=== PATIENT | male | born 1965 | race Caucasian/White ===

== ENCOUNTER 2023-08-25 11:46 | Emergency (ER) | payer OTHER, SELFPAY ==
--- NOTE | ~2023-08-25 | XR_ITS ---
XR shoulder RT min 2V DATE: 08/25/2023 12:21 INDICATION: Pulling injury. [place] a pop and pain at the anterior shoulder. TECHNIQUE: 4 views COMPARISON: None FINDINGS: There is diminished subacromial space and superior migration of the humeral head suggesting rotator cuff atrophy or tear. No fracture or dislocation, periosteal reaction or bone destruction or abnormal soft tissue calcifica tion is detected. There are some chronic bony bridging across the second and third ribs anterolaterally. IMPRESSION: Suspected right rotator cuff atrophy or tear Reviewed, dictated and finalized at location [facility].
[2023-08-25 11:57] VITALS: BP 170/110; PULSE 88; RESP 16; TEMP 37.2; O2SAT 100
[2023-08-25 12:05] VITALS: BP 178/107
--- NOTE | 2023-08-25 12:14 | ED.GENADULT ---
HPI - General Adult General Chief complaint: Extremity Injury, Upper Stated complaint: rt shoulder pain Source: patient, RN notes reviewed and old records reviewed Mode of arrival: ambulatory Limitations: no limitations History of Present Illness HPI narrative: 58-year-old male patient presents to [facility] with complaints right shoulder pain that started after patient states was playing compressor string and it snapped back pulling his shoulder/arm.patient has pain with moving. Related Data Home Medications Medication Instructions Recorded Confirmed meloxicam 7.5 mg tablet mg 08/25/23 Allergies Allergy/AdvReac Type Severity Reaction Status Date / Time No Known Allergies Allergy Verified 08/25/23 12:01 Review of Systems Constitutional: Constitutional: Reports no additional constitutional complaints, Denies body ache(s), Denies chills, Denies fatigue, Denies fever(s) and Denies headache(s) Eyes: Eyes: Reports no additional eye complaints and Denies blurry vision ENT: Reports system reviewed and no additional complaints, except as documented, Denies vertigo, Denies dizziness, Denies ear discharge, Denies otalgia, Denies facial pain, Denies headache(s), Denies nasal congestion, Denies nasal discharge, Denies sinus pain, Denies sinus pressure and Denies sore throat Cardiovascular: Cardiovascular: Reports no additional cardiovascular complaints, Denies chest pain, Denies chest pain at rest, Denies rapid heart rate and Denies dyspnea Respiratory: Respiratory: Reports no additional respiratory complaints, Denies chest congestion, Denies cough, Denies pain on inspiration, Denies pain with cough and Denies dyspnea Gastrointestinal: Gastrointestinal: Denies abdominal pain, Denies diarrhea, Denies nausea and Denies vomiting Musculoskeletal: Musculoskeletal: Reports as per HPI Comments: Right shoulder pain Integumentary/Breasts: Skin/Breast: Denies rash Neurologic: Reports system reviewed and no additional complaints, except as documented, Denies vertigo, Denies dizziness and Denies headache(s) Endocrine: Endocrine: Denies fatigue PMFSH Comments At the time of my signature, I reviewed and agree with the nursing past medical, surgical, social, and family history. There is no relevant family history pertinent to the patient complaint. Exam Const: General: cooperative, healthy appearing, no acute distress and well nourished Nutritional Appearance: well nourished Orientation/consciousness: patient oriented x3 Limitations: no limitations HENMT: Head: normal to inspection and normocephalic Ears: external ears normal, TM's normal bilaterally, EAC's normal and mastoids normal Face/Nose/Sinus: normal facial exam Face and sinus: normal facial exam Mouth: Yes Normal oral and palatal mucosa present, Yes oropharynx normal and Yes moist mucous membranes Throat: tonsils normal, uvula midline and no uvular edema Eyes: General: appearance normal, both eyes and all related structures Sclera: sclerae normal Pupils: Equal, round and reactive pupils present Resp: Effort & Inspection: normal respiratory effort, able to speak in complete sentences, no audible wheezes, no cough, no respiratory distress and no retractions Skin: General skin exam: normal color and no rashes or lesions noted Neuro: General: patient oriented x3 Cranial nerves: Yes Equal, round and reactive pupils present Extrem: Right upper extremity: shoulder/upper arm tenderness of the proximal humerus and abnormal ROM pain with active ROM and pain with passive ROM; no crepitus, no foreign bodies, no penetrating wound, no deformity and no unusual warmth and elbow/forearm normal to inspection and normal ROM; no tenderness and no swelling Psych: Appearance: grossly normal Mental Status: mental status grossly normal Speech and movement: Normal speech and movement present Affect: normal affect Course Course Emergency Course: Patient is aware of diagnosis, und
== END 2023-08-25 12:53 | disposition home or self-care (01) ==
PROVIDERS: Emergency Provider Registered Nurse; PCP Nurse Practitioner Family
DX: S46.001A Unspecified injury of muscle(s) and tendon(s) of the rotator cuff of right shoulder, initial encounter (principal); X50.9XXA Other and unspecified overexertion or strenuous movements or postures, initial encounter; I10 Essential (primary) hypertension; K21.9 Gastro-esophageal reflux disease without esophagitis; M19.90 Unspecified osteoarthritis, unspecified site
CPT/HCPCS: 73030; 99213; A4565; G0463

== ENCOUNTER 2023-09-10 09:35 | Outpatient (CLI) | payer OTHER, SELFPAY ==
--- NOTE | ~2023-09-10 | MR_ITS ---
MRI of the right shoulder Technique: Axial proton-density fat-sat images, coronal proton density fat-sat and T2 fat-sat images, and sagittal T1-weighted and T2 fat-sat images were acquired. Clinical History: Pain Findings: There is advanced AC joint degenerative change, joint space narrowing and subacromial spur present. Coracoclavicular, coracoacromial, coracoclavicular millimeters are probably intact. There are complete, full-thickness tears involving the entirety of the supraspinatus and infraspinatu s tendons, which are retracted to the level of the glenohumeral joint. Fluid-filled gap measures appr oximately 5.0 x 4.8 cm in extent. Subscapularis tendon is probably intact with moderate to advanced t endinosis. Tendon of the long head of the biceps is intact. No definite labral tear identified. Humeral head is high riding. There is chondral malacia the humeral head. There is small to moderate g lenohumeral joint effusion, with fluid passing through the rotator cuff defect into the subacromial/s ubdeltoid bursa and subscapularis recess. No definite muscle atrophy or edema evident at this time. I nferior glenohumeral ligament is intact. Impression: Complete, full-thickness tears of the entire supraspinatus and infraspinatus tendons, as detailed abo ve. Advanced AC joint degenerative change. 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 Reviewed, dictated and finalized at [facility]. Impression: Complete, full-thickness tears of the entire supraspinatus and infraspinatus te ndons, as detailed above. Advanced AC joint degenerative change. 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
== END 2023-09-10 09:36 | disposition home or self-care (01) ==
LOC: ANHIMG 09:38
PROVIDERS: PCP Nurse Practitioner Family; Visit Provider Orthopaedic Surgery
DX: M19.011 Primary osteoarthritis, right shoulder (principal)
CPT/HCPCS: 73221